=== PATIENT | male | born 1985 | race Caucasian/White ===

== ENCOUNTER 2023-07-11 07:24 | Day surgery (SDC) | payer MEDICAID ==
[2023-07-06 11:25] LABS: BASOPHILS % (AUTO) 0.7 % (0-1); EOSINOPHILS # (AUTO) 0.2 X10'3 (0-0.9); EOSINOPHILS % (AUTO) 3.6 % (0-6); LYMPHOCYTES # (AUTO) 1.5 X10'3 (1.1-4.8); MEAN CORPUSCULAR HEMOGLOBIN 30.2 PG (27.0-31.0); MEAN CORPUSCULAR HGB CONC 34.6 g/dL (33.0-36.5); MEAN CORPUSCULAR VOLUME 87.3 FL (78-98); MEAN PLATELET VOLUME 7.3 FL (7.4-10.4); MONOCYTES # (AUTO) 0.4 X10'3 (0-0.9); MONOCYTES % (AUTO) 6.4 % (2-12); NEUTROPHILS # (AUTO) 4.4 X10'3 (1.8-7.7); NEUTROPHILS % (AUTO) 66.3 % (42-75); PRE OP HEMATOCRIT 44.6 % (42.0-52.0); PRE OP HEMOGLOBIN 15.4 g/dL (14.0-17.9); PRE OP PLATELET COUNT 287 X10'3 (140-440); PRE OP WHITE BLOOD COUNT 6.6 10'3 (4.8-10.8); RED BLOOD COUNT 5.11 X10'6 (4.70-6.10); RED CELL DISTRIBUTION WIDTH 12.7 % (11.5-14.5)
[2023-07-06 11:36] LABS: ALBUMIN 4.4 G/DL (3.4-5.0); ALBUMIN/GLOBULIN RATIO 1.1 (1.1-1.5); ALKALINE PHOSPHATASE 80 IU/L (46-116); BLOOD UREA NITROGEN 15 MG/DL (7-18); BUN/CREATININE RATIO 15.2 (10.0-20.0); CALCIUM 9.5 MG/DL (8.5-10.1); CHLORIDE 101 MMOL/L (99-107); CREATININE 0.99 MG/DL (0.60-1.10); PRE OP ALT 38 U/L (30-65); PRE OP ANION GAP 8 (8-16); PRE OP AST 22 U/L (10-37); PRE OP BILIRUB, TOTAL 0.4 MG/DL (0.0-1.0); PRE OP GLUCOSE 118 MG/DL (70-104); PRE OP POTASSIUM 3.4 MMOL/L (3.4-5.1); PRE OP SODIUM 139 MMOL/L (135-145); TOTAL CARBON DIOXIDE 30.5 MMOL/L (24-32); TOTAL PROTEIN 8.4 G/DL (6.4-8.2); eGFR 84 ML/MIN
[2023-07-11] VITALS (8 sets, daily range): BP systolic 134–159; BP diastolic 83–100; PULSE 67–88; RESP 15–27; TEMP 97.5; O2SAT 93–99
[~2023-07-11] VITALS: Ht 182.9 cm; Wt 122.5 kg
[~2023-07-11 07:24] MED LIST: BENA1TAB19 PO; FAMO20TA8 PO; METF-900 PO; [UNRECOGNIZED DRUG - CODE] PO; ceFOXitin 2GM-NS 100mL ADDvant 100 ML IV ONE; famotidine 20mg tablet PO ONE; ringers solution, lacted 1,000 ML IV SCH
[2023-07-11] MEDS ORDERED: morphine 2 MG/ML inj. syringe IV PRN (09:00)
[2023-07-11] MEDS ORDERED: meperidine/PF 25mg/ml syringe IV PRN ×3 (09:00)
[2023-07-11] MEDS ORDERED: proCHLORperazine 10 MG/2 ml inj IV PRN (09:00)
[2023-07-11] MEDS ORDERED: morphine 4 MG/ML inj SYRINge IV PRN (09:00)
[2023-07-11] MEDS ORDERED: ondansetron/PF 4mg/2ml inj IV PRN (09:00)
[2023-07-11] MEDS ORDERED: ringers solution, lacted 1,000 ML IV SCH (09:00)
[2023-07-11] MEDS ORDERED: BUPIVAcaine/PF 2.5 mg/ml (0.25%) 30ml vial ONE (10:22)
[2023-07-11] MEDS ORDERED: sevoflurane 250ml liquid IH ONE (10:29)
[2023-07-11] MEDS ORDERED: rocuronium 10mg/ml inj IV ONE ×2 (10:29→10:55)
[2023-07-11] MEDS ORDERED: fentaNYL/PF 50MCG/1 ML 2ML syringe ONE (10:33)
[2023-07-11] MEDS ORDERED: midazolam 1 mg/ML 2ml injection ONE (10:33)
[2023-07-11] MEDS ORDERED: propofol inj 20 ML IV ONE (10:37)
[2023-07-11] MEDS ORDERED: dexamethasone sod phosphate 4mg/ml inj. ONE (10:55)
[2023-07-11] MEDS ORDERED: BUPIVAcaine/PF 2.5 mg/ml (0.25%) 30ml vial IJ ONE (11:19)
[2023-07-11] MEDS ORDERED: ondansetron/PF 4mg/2ml inj ONE (12:30)
[2023-07-11] MEDS ORDERED: neostigmine methylsulfate 1 MG/ML 10ml vial ONE (12:30)
[2023-07-11] MEDS ORDERED: glycopyrrolate 0.2mg/ml inj ONE (12:30)
--- NOTE | 2023-07-11 12:33 | NUR ---
Received from OR via [facility] TO [facility], accompanied by Anesthesiologist NORBERT and report given by Anesthesiologist. NONVERBAL PAIN 0/10. PATIENT HAS NO C/O NAUSEA AT THIS TIME. VSS, ON 10 L MASK WITH SPO2 AT 100%. 3 LAP SITES, CHELITA DRAIN DRAINING. LR RUNNING. SCD'D ON BILATERAL LEGS. PT RESTING IN BED. RESPIRATIONS EVEN AND UNLABORED, SNORING. NO DISTRESS NOTED ON EXAM. PLAN OF CARE ONGOING.
[2023-07-11] MEDS ORDERED: HYDROcodone/acetaminophen 10/325mg tab PO STA (13:29)
--- NOTE | 2023-07-11 13:53 | NUR ---
ALL DISCHARGE CRITERIA HAS BEEN MET. VSS, PAIN AT TOLERABLE LEVEL. ABLE TO SAFELY AMBULATE AND TRANSFER SELF. IV TAKEN OUT WITHOUT ANY COMPLICATIONS. ALL DISCHARGE INSTRUCTIONS COVERED WITH PATIENT AND ALL QUESTIONS ANSWERED. PATIENT TAKEN OUT VIA WHEELCHAIR TO PERSONAL VEHICLE WHERE FAMILY/FRIEND DROVE PATIENT HOME.
== END 2023-07-11 13:53 | disposition home or self-care (01) ==
LOC: PAS 07:24
PROVIDERS: ATTEND Surgery
DX: K80.10 Calculus of gallbladder with chronic cholecystitis without obstruction (principal); E66.9 Obesity, unspecified; Z68.36 Body mass index [BMI] 36.0-36.9, adult; I10 Essential (primary) hypertension; G47.30 Sleep apnea, unspecified; G89.29 Other chronic pain; K21.9 Gastro-esophageal reflux disease without esophagitis; E11.9 Type 2 diabetes mellitus without complications; Z98.890 Other specified postprocedural states; Z79.84 Long term (current) use of oral hypoglycemic drugs; Z79.899 Other long term (current) drug therapy; Z86.14 Personal history of Methicillin resistant Staphylococcus aureus infection; Z82.49 Family history of ischemic heart disease and other diseases of the circulatory system
CPT/HCPCS: 36415; 47562; 80053; 82948; 85025; 93005; J0694; J1100; J2250; J2405; J2704; J2710; J3010; J3490; J7030; J7120; Z7506; Z7508; A4215; A4618; A7000

== ENCOUNTER 2023-07-13 21:29 | Inpatient (IN) | payer MEDICAID ==
[~2023-07-13] VITALS: Ht 183.5 cm; Wt 109.6 kg
[~2023-07-13 21:29] MED LIST changes: -ceFOXitin 2GM-NS 100mL ADDvant 100 ML IV ONE; -famotidine 20mg tablet PO ONE; -ringers solution, lacted 1,000 ML IV SCH
--- NOTE | 2023-07-13 22:05 | NUR ---
Took hydrocodone 10-325 around 1930 for pain, antinausea and laxative at the same time.
[2023-07-13] MEDS ORDERED: acetaminophen 650mg rectal suppository RC STA (23:38)
[2023-07-13] MEDS ORDERED: piperacillin/tazo 3.375gm/50ml 50 ML IV ONE (23:40)
[2023-07-13] MEDS ORDERED: normal saline 1000ML IV soln IV ONE (23:40)
[2023-07-13] MEDS ORDERED: vancomycin/NS 1 GM ADD-VANTAGE 250 ML IV ONE (23:55)
[2023-07-14] VITALS (22 sets, daily range): BP systolic 129–163; BP diastolic 79–99; PULSE 80–110; RESP 12–26; TEMP 97.5–98; O2SAT 90–98
[2023-07-14] MEDS ORDERED: ondansetron/PF 4mg/2ml inj IV ONE (00:30)
[2023-07-14] MEDS ORDERED: morphine 4 MG/ML inj SYRINge IV ONE (00:30)
[2023-07-14 01:07] LABS: BASOPHILS % (AUTO) 0.4 % (0-1); EOSINOPHILS # (AUTO) 0.1 X10'3 (0-0.9); EOSINOPHILS % (AUTO) 1.4 % (0-6); HEMATOCRIT 47.5 % (42.0-52.0); HEMOGLOBIN 16.5 g/dl (14.0-17.9); LYMPHOCYTES % (AUTO) 18.8 % (21-51); MEAN CORPUSCULAR HEMOGLOBIN 30.5 PG (27.0-31.0); MEAN CORPUSCULAR HGB CONC 34.7 g/dL (33.0-36.5); MEAN CORPUSCULAR VOLUME 87.9 FL (78-98); MEAN PLATELET VOLUME 7.4 FL (7.4-10.4); MONOCYTES # (AUTO) 0.8 X10'3 (0-0.9); NEUTROPHILS # (AUTO) 7.5 X10'3 (1.8-7.7); NEUTROPHILS % (AUTO) 71.4 % (42-75); PLATELET COUNT 346 X10'3 (140-440); RED BLOOD COUNT 5.41 X10'6 (4.70-6.10); RED CELL DISTRIBUTION WIDTH 12.7 % (11.5-14.5); WHITE BLOOD COUNT 10.6 X10'3 (4.5-11.0)
[2023-07-14 01:10] LABS: ALANINE AMINOTRANSFERASE 109 U/L (12-78); ALBUMIN 4.2 G/DL (3.4-5.0); ALBUMIN/GLOBULIN RATIO 0.9 (1.1-1.5); ALKALINE PHOSPHATASE 103 IU/L (46-116); ANION GAP 9 (8-16); ASPARTATE AMINO TRANSFERASE 46 U/L (10-37); BILIRUBIN,TOTAL 0.8 MG/DL (0.1-1.0); BLOOD UREA NITROGEN 15 MG/DL (7-18); BUN/CREATININE RATIO 13.5 (10.0-20.0); CALCIUM 9.9 MG/DL (8.5-10.1); CHLORIDE 100 MMOL/L (99-107); CREATININE 1.11 MG/DL (0.60-1.10); GLUCOSE 162 MG/DL (70-104); MAGNESIUM 2.2 MG/DL (1.5-2.4); POTASSIUM 3.6 MMOL/L (3.5-5.1); SODIUM 139 MMOL/L (135-145); TOTAL CARBON DIOXIDE 29.9 MMOL/L (24-32); TOTAL PROTEIN 8.7 G/DL (6.4-8.2); eCRCL 99 ML/MIN; eGFR 74 ML/MIN
[2023-07-14] MEDS ORDERED: metoclopramide 5 mg/ml inj IV ONE (01:20)
--- NOTE | 2023-07-14 01:30 | NUR ---
Patient given Zofran with no results. Patient still throwing up. MD ordered Reglan and administered with effective results.
[2023-07-14] MEDS: diatr meglu/diatrizoate 30ml oral sol.-(3 dose) bottle PO SCH ×3 (01:49→02:54)
[2023-07-14 02:04] LABS: BILIRUBIN,URINE NEGATIVE (Neg); CLARITY,URINE SLIGHTLY CLOUDY (Clear); COLOR,URINE YELLOW (Yellow); GLUCOSE, URINE NEGATIVE (Neg); KETONES,URINE NEGATIVE (Neg); LEUKOCYTE ESTERASE ,URINE NEGATIVE (Neg); NITRITES, URINE NEGATIVE (Neg); OCCULT BLOOD,URINE NEGATIVE (Neg); PH,URINE 6.5 (4.8-8.0); PROTEIN,URINE 100 mg/dl (Neg); UROBILINOGEN,URINE 0.2 E.U/dL (0.2-1.0)
[2023-07-14 02:14] LABS: UA COLLECTION TYPE CLN CATCH MIDSTREAM
[2023-07-14 02:15] LABS: SQUAMOUS EPITHELIAL CELL,UR NONE SEEN /LPF (FEW)
[2023-07-14 02:16] LABS: HYALINE CASTS 0-3 /LPF (NEGATIVE)
[2023-07-14 02:17] LABS: BACTERIA,URINE 1+ /HPF (Neg); RBC,URINE 0-2 /HPF (0-2); WBC,URINE 0-4 /HPF (0-4)
[2023-07-14 02:18] LABS: MUCUS STRANDS MANY /LPF (Neg)
[2023-07-14] MEDS ORDERED: iohexol 300mg/ml 100ml inj. ONE (02:34)
--- NOTE | 2023-07-14 02:55 | NUR ---
per dr herrera, 3rd dose of gastroview not needed so not administered.
--- NOTE | 2023-07-14 05:25 | NUR ---
Fluids given with oral contrast.
[2023-07-14] MEDS ORDERED: normal saline 1000ml 1,000 ML IV ONE (06:05)
[2023-07-14] MEDS ORDERED: potassium Cl 20 mEq SR tablet PO PRN ×2 (08:10)
[2023-07-14] MEDS ORDERED: morphine 2 MG/ML inj. syringe IV PRN ×3 (08:10→09:55)
[2023-07-14] MEDS ORDERED: HYDROcodone/acetaminophen 5mg/325mg tablet PO PRN (08:10)
[2023-07-14] MEDS ORDERED: magnesium Cl slow-release 64mg tablet PO PRN (08:10)
[2023-07-14] MEDS: normal saline 1000ml 1,000 ML IV SCH ×2 (08:10→20:07)
[2023-07-14] MEDS ORDERED: magnesium 4gm in 100ml NS 100 ML IV PRN (08:10)
[2023-07-14] MEDS ORDERED: potassium Cl 40MEQ/1/2NS 520ml 520 ML IV PRN (08:10)
[2023-07-14] MEDS ORDERED: acetaminophen 325mg tablet PO PRN ×2 (08:10)
[2023-07-14] MEDS ORDERED: ondansetron/PF 4mg/2ml inj IV PRN ×2 (08:10→09:55)
[2023-07-14] MEDS ORDERED: magnesium 2GM in 50ml NS 50 ML IV PRN (08:10)
[2023-07-14] MEDS: CefTRIAXone 2gm/D5W 50ml BAG 50 ML IV SCH (08:18)
[2023-07-14] MEDS ORDERED: hydrALAZINE 20mg/ml inj. IV PRN (09:55)
[2023-07-14] MEDS ORDERED: labetalol 20mg/4ml (5mg/ml) syringe IV PRN (09:55)
[2023-07-14] MEDS ORDERED: morphine 4 MG/ML inj SYRINge IV PRN (09:55)
[2023-07-14] MEDS ORDERED: ringers solution, lacted 1,000 ML IV ONE (09:55)
[2023-07-14] MEDS ORDERED: fentaNYL/PF 50MCG/1 ML 2ML syringe IV PRN ×2 (09:55)
[2023-07-14] MEDS ORDERED: ringers solution, lacted 1,000 ML IV SCH (09:55)
[2023-07-14] MEDS ORDERED: LIDOcaine 1% 30ml preserv. free vial ONE (11:02)
[2023-07-14] MEDS ORDERED: BUPIVAcaine/PF 2.5 mg/ml (0.25%) 30ml vial ONE ×2 (11:02→12:26)
[2023-07-14] MEDS ORDERED: BUPIVACAINE liposomal/PF 13.3 MG/ML vial IM ONE (12:26)
[2023-07-14] MEDS ORDERED: desflurane 240ml liquid inh. IH ONE (13:00)
[2023-07-14] MEDS ORDERED: fentaNYL/PF 50MCG/1 ML 2ML syringe ONE (13:02)
[2023-07-14] MEDS ORDERED: midazolam 1 mg/ML 2ml injection ONE (13:02)
[2023-07-14] MEDS ORDERED: LIDOcaine 2% (20mg/ml) 5ml vial ONE (13:11)
[2023-07-14] MEDS ORDERED: propofol inj 20 ML IV ONE (13:11)
[2023-07-14] MEDS ORDERED: rocuronium 10mg/ml inj IV ONE (13:11)
[2023-07-14] MEDS ORDERED: dexamethasone sod phosphate 4mg/ml inj. ONE (13:12)
[2023-07-14] MEDS ORDERED: ondansetron/PF 4mg/2ml inj ONE (13:12)
[2023-07-14] MEDS ORDERED: neostigmine methylsulfate 1 MG/ML 10ml vial ONE (13:16)
[2023-07-14] MEDS ORDERED: glycopyrrolate 0.2mg/ml inj ONE (13:16)
[2023-07-14] MEDS ORDERED: ceFAZolin 1000mg inj ONE ×2 (13:36→13:37)
[2023-07-14] MEDS ORDERED: BUPIVAcaine 0.25% w/Epi /PF 30ml vial IJ ONE (13:55)
[2023-07-14] MEDS ORDERED: LIDOcaine 1% 30ml preserv. free vial IJ ONE (13:55)
[2023-07-14] MEDS ORDERED: labetalol 20mg/4ml (5mg/ml) syringe IV ONE (14:01)
--- NOTE | 2023-07-14 14:24 | NUR ---
Received from OR via [facility], accompanied by Anesthesiologist DR ALVAREZ and report given by Anesthesiologist. PT IS GROGGY BUT RESPONDS TO VERBAL STIMULI AND FOLLOWS COMMANDS. PT PLACED ON BEDSIDE MONITOR, VSS. PT HAD IN SR WITH RATE IN 80'S. PT IS RECEIVING 10L O2 TO MASK AND TOLERATING WELL WITH O2 SAT >95%. WILL TITRATE DOWN PT TOLERATES. PT HAS 18G PIV TO RT UPPER ARM WITH LR INFUSING ORDERED. PT HAS 3 LAP SITES TO ABD AND ONE BAND-AID. ALL SITES ARE CDI. PT DENIES PAIN AT THIS TIME. WILL CONTINUE TO ASSESS
[2023-07-14] MEDS ORDERED: naloxone 0.4 mg/ml inj IV PRN (15:25)
--- NOTE | 2023-07-14 16:21 | NUR ---
PATIENT HAS MET ALL CRITERIA FOR TRANSFER TO THE ORTHO FLOOR. VSS. DRESSINGS INTACT. BED LOW, CALL LIGHT PRESENT AND 2 RAILS UP. SHEILA RN PRESENT TO ACCEPT CARE OF PATIENT AND REPORT HAS BEEN CALLED TO ETHAN RONQUILLO. ALL QUESTIONS ANSWERED TO ACCEPTING RN.
--- NOTE | 2023-07-14 16:37 | NUR ---
Patient on the unit with at bedside. Patient with NG, LCS and NOT LIS per Dr. Chang order.
--- NOTE | 2023-07-14 17:27 | NUR ---
PAGER ID: [phone] MESSAGE: New patient Bharati Marroquin CPAP at night. I will need an order for him to continue with CPAP at night. Gita [id number]
--- NOTE | 2023-07-14 17:52 | NUR ---
Student documentation: I have reviewed interventions, assessments performed and documented by Ashanti BOYCE of [facility]. Student Medication Administration: For all medication-pass' in the time frame of 0600 - 1830, all medication were reviewed, dispensed, administered and documented per hospital policy by Ashanti BOYCE of [facility] .
--- NOTE | 2023-07-14 18:18 | NUR ---
Problems reprioritized. Patient report given, questions answered & plan of care reviewed with Blanca RONQUILLO.
[2023-07-14] MEDS ORDERED: enoxaparin 40mg/0.4ml syringe SQ SCH (20:00)
[2023-07-14] MEDS: heparin, porcine 5000 units/ml vial SQ SCH (20:05)
[2023-07-15 02:00] VITALS: BP 132/85; PULSE 93; RESP 17; TEMP 97.5; O2SAT 20
[2023-07-15] MEDS: normal saline 1000ml 1,000 ML IV SCH ×2 (04:18→14:10)
[2023-07-15 06:17] LABS: BASOPHILS % (AUTO) 0.4 % (0-1); EOSINOPHILS # (AUTO) 0.1 X10'3 (0-0.9); HEMATOCRIT 38.9 % (42.0-52.0); HEMOGLOBIN 13.5 g/dl (14.0-17.9); LYMPHOCYTES # (AUTO) 1.5 X10'3 (1.1-4.8); MEAN CORPUSCULAR HEMOGLOBIN 30.8 PG (27.0-31.0); MEAN CORPUSCULAR HGB CONC 34.8 g/dL (33.0-36.5); MEAN CORPUSCULAR VOLUME 88.6 FL (78-98); MEAN PLATELET VOLUME 7.7 FL (7.4-10.4); MONOCYTES # (AUTO) 0.7 X10'3 (0-0.9); MONOCYTES % (AUTO) 8.9 % (2-12); NEUTROPHILS # (AUTO) 5.6 X10'3 (1.8-7.7); NEUTROPHILS % (AUTO) 70.7 % (42-75); PLATELET COUNT 253 X10'3 (140-440); RED BLOOD COUNT 4.39 X10'6 (4.70-6.10); RED CELL DISTRIBUTION WIDTH 12.6 % (11.5-14.5); WHITE BLOOD COUNT 7.9 X10'3 (4.5-11.0)
[2023-07-15 06:39] LABS: ALANINE AMINOTRANSFERASE 251 U/L (12-78); ALBUMIN/GLOBULIN RATIO 0.9 (1.1-1.5); ALKALINE PHOSPHATASE 102 IU/L (46-116); ANION GAP 5 (8-16); ASPARTATE AMINO TRANSFERASE 68 U/L (10-37); BILIRUBIN,TOTAL 0.4 MG/DL (0.1-1.0); BLOOD UREA NITROGEN 12 MG/DL (7-18); BUN/CREATININE RATIO 13.2 (10.0-20.0); CALCIUM 8.3 MG/DL (8.5-10.1); CHLORIDE 107 MMOL/L (99-107); CREATININE 0.91 MG/DL (0.60-1.10); GLUCOSE 126 MG/DL (70-104); POTASSIUM 3.6 MMOL/L (3.5-5.1); SODIUM 141 MMOL/L (135-145); TOTAL CARBON DIOXIDE 29.5 MMOL/L (24-32); TOTAL PROTEIN 6.4 G/DL (6.4-8.2); eCRCL 121 ML/MIN; eGFR > 90 ML/MIN
[2023-07-15] MEDS: heparin, porcine 5000 units/ml vial SQ SCH (07:03)
[2023-07-15 07:20] VITALS: BP 149/59; PULSE 72; RESP 18; TEMP 98.3; O2SAT 97
[2023-07-15 07:35] VITALS: RESP 18
--- NOTE | 2023-07-15 07:39 | NUR ---
Patient states that he walked into the restroom and "had a BM, and passing gas a few times." Addendum: 07/15/23 at 0741 by Gita Gomez RN Amended: Links added.
[2023-07-15 10:00] VITALS: RESP 18; O2SAT 95
[2023-07-15] MEDS: CefTRIAXone 2gm/D5W 50ml BAG 50 ML IV SCH (10:10)
[2023-07-15 10:43] VITALS: BP 150/96; PULSE 72; RESP 18; TEMP 97.7; O2SAT 95
[2023-07-15] MEDS: HYDROcodone/acetaminophen 10/325mg tab PO PRN ×2 (10:58→17:03)
--- NOTE | 2023-07-15 16:57 | NUR ---
PAGER ID: [phone] MESSAGE: Mr. Marroquin in [id number] seems to be doing well to go home. Dr. Edmond did his discharge it appears. I will continue with his discharge after dinner. Pt has pain meds and stool softeners already. Gita [id number]
[2023-07-15] MEDS ORDERED: ACET-1008 PO (17:14)
[2023-07-15] MEDS ORDERED: BENA20TA2 PO (17:16)
[2023-07-15 18:03] VITALS: RESP 18
== END 2023-07-15 18:12 | disposition home or self-care (01) | DRG 227 ==
LOC: ER 21:30 → ED HOLD 07-14 08:16 → ORTHO 4S 07-14 16:10
PROVIDERS: ADMIT Internal Medicine; ATTEND Internal Medicine
PROC: 8E0W4CZ Robotic Assisted Procedure of Trunk Region, Percutaneous Endoscopic Approach (ICD-10-PCS; 2023-07-14)
PROC: BW211ZZ Computerized Tomography (CT Scan) of Abdomen and Pelvis using Low Osmolar Contrast (ICD-10-PCS; 2023-07-14)
PROC: 0WQF4ZZ Repair Abdominal Wall, Percutaneous Endoscopic Approach (ICD-10-PCS; principal; 2023-07-14 13:00)
DX: K43.0 Incisional hernia with obstruction, without gangrene (principal); E11.9 Type 2 diabetes mellitus without complications; E66.9 Obesity, unspecified; G89.29 Other chronic pain; G47.33 Obstructive sleep apnea (adult) (pediatric); K21.9 Gastro-esophageal reflux disease without esophagitis; I10 Essential (primary) hypertension; Z90.49 Acquired absence of other specified parts of digestive tract; Z68.32 Body mass index [BMI] 32.0-32.9, adult
CPT/HCPCS: 36415; 71045; 74177; 80053; 81001; 82948; 83036; 83605; 83735; 84145; 85025; 87040; 87088; 99285; A4215; A4615; A4618; A6212; A6213; A6253; A6258; A6449; C9290; G0378; J0690; J0696; J1100; J1644; J2250; J2270; J2405; J2543; J2704; J2710; J2765; J3010; J3370; J3490; J7030; J7120; Q9963; Q9967; S0020